=== PATIENT | female | born 1980 | race Caucasian/White ===

== ENCOUNTER 2019-12-29 13:08 | Emergency (ER) | payer MEDICAID ==
[2019-12-29] MEDS ORDERED: Sodium Chloride 0.9% 1,000 ML IV ONE (13:13)
[2019-12-29] MEDS ORDERED: Morphine 4 MG/ML Syringe IVPUSH ONE (13:16)
--- NOTE | 2019-12-29 13:32 | EDM.PDOC ---
ED HPI GENERAL MEDICAL PROBLEM - General Chief Complaint: Abdominal Pain Stated Complaint: ABD PAIN Time Seen by Provider: 12/29/19 13:10 Source of Information: Reports: Patient History Limitations: Reports: No Limitations - History of Present Illness INITIAL COMMENTS - FREE TEXT/NARRATIVE: This 38 year old female is admitted to the ED with a chief complaint of epigastric abdominal pain going through to the back for two days that has gotten worse. She describes the pain as sharp to dull. No nausea or vomiting. Complains of constipation. No complaints. She denies any other complaints. She has a history of pancreatitis that was diagnosed 4 years ago. She is on Suboxone. She denies any alcohol ingestion or drug use. Onset: Gradual (over two days) Duration: Constant Location: Reports: Abdomen Quality: Reports: Sharp (to dull) Upper Abdomen Pain Score (Numeric/FACES): 10 - Related Data Allergies Allergy/AdvReac Type Severity Reaction Status Date / Time No Known Allergies Allergy Verified 12/29/19 13:14 Home Meds: Home Meds Buprenorphine HCl/Naloxone HCl [Buprenorphin-Naloxon 8-2 mg Sl] 1 tab .XX DAILY 12/29/19 [History] Ondansetron [Zofran] 4 mg PO Q8H PRN 5 Days #15 tab 12/29/19 [Rx] clonazePAM [Clonazepam] 1 mg PO ASDIRECTED 12/29/19 [History] ED ROS GENERAL - Review of Systems Review Of Systems: See Below Constitutional: Reports: No Symptoms HEENT: Reports: No Symptoms Respiratory: Reports: No Symptoms Cardiovascular: Reports: No Symptoms Endocrine: Reports: No Symptoms GI/Abdominal: Reports: Abdominal Pain. Denies: Nausea, Vomiting : Reports: No Symptoms Musculoskeletal: Reports: No Symptoms Skin: Reports: No Symptoms Neurological: Reports: No Symptoms ED EXAM, GI/ABD - Physical Exam Exam: See Below Exam Limited By: No Limitations General Appearance: Alert, WD/WN, Moderate Distress (complaining of epigastric pain through to the back) Eyes: Bilateral: Normal Appearance, EOMI Ears: Normal External Exam, Normal Canal, Normal TMs Nose: Normal Inspection, Normal Mucosa, No Blood Throat/Mouth: Normal Inspection, Normal Oropharynx Head: Atraumatic Neck: Normal Inspection, Supple Respiratory/Chest: No Respiratory Distress, Lungs Clear, Normal Breath Sounds, Chest Non-Tender Cardiovascular: Normal Peripheral Pulses, Regular Rate, Rhythm, No Murmur GI/Abdominal Exam: Normal Bowel Sounds, Soft, Guarding, Tender (epigastric tenderness through to the back). No: Rigid, Rebound (Female) Exam: Deferred Rectal (Female) Exam: Normal Exam, Normal Rectal Tone, Heme - Stool. No: Fecal Impaction Back Exam: Normal Inspection Extremities: Normal Inspection Neurological: Alert, Oriented (times 3), CN II-XII Intact, Normal Reflexes, No Motor/Sensory Deficits Psychiatric: Normal Affect, Normal Mood Skin Exam: Warm, Dry, Intact Lymphatic: No Adenopathy Course - Vital Signs Text/Narrative:: The patient was re-evaluated at 2:56PM. She is much improved. Rectal exam is negative for masses or fecal impaction. Very small amount of stool noted in the rectal vault. She will be discharged. The patient agrees with the discharge plan. Last Recorded V/S: Last Vital Signs Temp 96.7 F L 12/29/19 13:10 Pulse 68 12/29/19 14:12 Resp 17 12/29/19 14:12 BP 101/60 12/29/19 14:12 Pulse Ox 99 12/29/19 14:12 - Orders/Labs/Meds Labs: Laboratory Tests 12/29/19 12/29/19 12/29/19 Range/Units 13:09 13:09 13:09 WBC 5.17 (4.0-11.0) K/uL RBC 4.34 (4.30-5.90) M/uL Hgb 11.8 L (12.0-16.0) g/dL Hct 37.3 (36.0-46.0) % MCV 85.9 (80.0-98.0) fL MCH 27.2 (27.0-32.0) pg MCHC 31.6 (31.0-37.0) g/dL RDW Std Deviation 44.5 (28.0-62.0) fl RDW Coeff of John 14 (11.0-15.0) % Plt Count 217 (150-400) K/uL MPV 9.40 (7.40-12.00) fL Neut % (Auto) 46.8 L (48.0-80.0) % Lymph % (Auto) 41.6 H (16.0-40.0) % [place] % (Auto) 8.9 (0.0-15.0) % Eos % (Auto) 2.5 (0.0-7.0) % Baso % (Auto) 0.2 (0.0-1.5) % Neut # (Auto) 2.4 (1.4-5.7) K/uL Lymph # (Auto) 2.2 (0.6-2.4) K/uL [place] # (Auto) 0.5 (0.0-0.8) K/uL Eos # (Auto) 0.1 (0.0-0.7) K/uL Baso # (Auto) 0.0 (0.0-0.1) K/uL Nucleated RBC % 0.0 /100WBC Nucleated RBCs # 0 K/uL Lactate 1.1 (0.20-2.00) mmol/L Sodium 140 (136-145) mmol/L Potassium 3.9 (3.5-5.1) mmol/L Chloride 106 (98-107) mmol/L Carbon Dioxide 27.9 (21.0-32.0) mmol/L BUN 16 (7.0-18.0) mg/dL Creatinine 0.9 (0.6-1.0) mg/dL Est Cr Clr Drug Dosing TNP Estimated GFR (MDRD) > 60.0 ml/min Glucose 89 (74-106) mg/dL Calcium 8.3 L (8.5-10.1) mg/dL Magnesium 2.1 (1.8-2.4) mg/dL Total Bilirubin 0.1 L (0.2-1.0) mg/dL AST 28 (15-37) IU/L ALT 32 (14-63) IU/L Alkaline Phosphatase 50 (46-116) U/L Total Protein 6.7 (6.4-8.2) g/dL Albumin 3.2 L (3.4-5.0) g/dL Globulin 3.5 (2.6-4.0) g/dL Albumin/Globulin Ratio 0.9 (0.9-1.6) Lipase 124 (73-393) U/L Meds: Medications Discontinued Medications Generic Name Dose Route Start Last Admin Trade Name Freq PRN Reason Stop Dose Admin Sodium Chloride 1,000 mls @ 1,000 mls/hr 12/29/19 13:13 12/29/19 13:20 Normal Saline IV 12/29/19 14:12 1,000 mls/hr .Bolus ONE Administration Iopamidol 90 ml 12/29/19 14:09 12/29/19 14:11 Isovue Multipack-370 (76%) IVPUSH 12/29/19 14:10 90 ml ONETIME STA Administration Morphine Sulfate 4 mg 12/29/19 13:16 12/29/19 13:20 Morphine IVPUSH 12/29/19 13:17 4 mg ONETIME ONE Administration Departure - Departure Time of Disposition: 15:02 Disposition: Home, Self-Care 01 Condition: Good Clinical Impression: Nonspecific abdominal pain Constipation Qualifiers: Constipation type: chronic idiopathic constipation Qualified Code(s): K59.04 - Chronic idiopathic constipation - Discharge Information *PRESCRIPTION DRUG MONITORING PROGRAM REVIEWED*: Yes *COPY OF PRESCRIPTION DRUG MONITORING REPORT IN PATIENT DESMOND: Yes Instructions: Constipation, Adult, [id number], Probiotics, High-Fiber Diet Forms: ED Department Discharge Additional Instructions: Take all medications as directed. Follow up with your PCP in the next two to four days. Clear liquids for the next 8 hours and then advance your diet as tolerated. Rest for the next 24 hours. Return to the ED if your condition gets worse or should you have any questions or concerns. The following information is given to patients seen in the emergency department who are being discharged to home. This information is to outline your options for follow-up care. We provide all patients seen in our emergency department with a follow-up referral. The need for follow-up, as well as the timing and circumstances, are variable depending upon the specifics of your emergency department visit. If you don't have a primary care physician on staff, we will provide you with a referral. We always advise you to contact your personal physician following an emergency department visit to inform them of the circumstance of the visit and for follow-up with them and/or the need for any referrals to a consulting specialist. The emergency department will also refer you to a specialist when appropriate. This referral assures that you have the opportunity for follow-up care with a specialist. All of these measure are taken in an effort to provide you with optimal care, which includes your follow-up. Under all circumstances we always encourage you to contact your private physician who remains a resource for coordinating your care. When calling for follow-up care, please make the office aware that this follow-up is from your recent emergency room visit. If for any reason you are refused follow-up, please contact the [facility] Emergency Department at and asked to speak to the emergency department charge nurse. Sepsis Event Note - Focused Exam Vital Signs: Vital Signs Temp Pulse Resp BP Pulse Ox 12/29/19 14:12 68 17 101/60 99 12/29/19 13:23 99 17 111/63 98 12/29/19 13:10 96.7 F L 71 16 115/54 L 97 Date Exam was Performed: 12/29/19 Time Exam was Performed: 14:59
[2019-12-29 13:43] LABS: BLOOD UREA NITROGEN,BUN 16 mg/dL (7.0-18.0); CARBON DIOXIDE,CO2 27.9 mmol/L (21.0-32.0); CHLORIDE,CL 106 mmol/L (98-107); GLUCOSE RANDOM 89 mg/dL (74-106); LIPASE 124 U/L (73-393); POTASSIUM,K 3.9 mmol/L (3.5-5.1); SODIUM,NA 140 mmol/L (136-145)
[2019-12-29] MEDS ORDERED: Iopamidol 755 MG/ML 500 ML Multipack Bottle IVPUSH STA (14:09)
--- NOTE | 2019-12-29 14:37 | CT ---
CT abdomen and pelvis Technique: Multiple axial sections were obtained from above the dome of the diaphragm inferiorly through the pubic symphysis. Intravenous contrast was utilized. No oral contrast has been given. Comparison: No prior abdominal imaging. Findings: Visualized lung bases show nothing acute. Liver contains no focal parenchymal abnormality. Spleen shows no focal abnormality. Adrenal glands show no nodule. Kidneys show symmetric contrast enhancement with no hydronephrosis or mass being seen. Pancreas appears within normal limits. Gallbladder contains no calcified gallstones. Aorta shows no aneurysm. No retroperitoneal adenopathy or mesenteric abnormalities are seen. No pelvic mass or adenopathy is noted. Increased stool is seen throughout the colon. Appendix is seen which is normal in size. No free fluid or inflammatory change is appreciated. Bone window settings were reviewed. No acute osseous finding is appreciated. Impression: 1. Increased stool throughout the colon. 2. Nothing acute is otherwise seen on CT study of the abdomen and pelvis. Diagnostic code #2 This report was dictated in MDT
== END 2019-12-29 15:16 | disposition home or self-care (01) ==
LOC: MW.ED 13:08
DX: K59.04 Chronic idiopathic constipation (principal); Z79.899 Other long term (current) drug therapy
CPT/HCPCS: 36415; 74177; 80053; 83605; 83690; 83735; 85025; 96361; 96374; 99285; J2270; J7030; Q9967; 99283

== ENCOUNTER 2021-01-23 02:40 | Emergency (ER) | payer MEDICAID ==
[2021-01-23] MEDS ORDERED: Sodium Chloride 0.9% 2.5 ML Syringe FLUSH PRN (02:52)
[2021-01-23] MEDS ORDERED: Ketorolac 30 MG/ML SDV IVPUSH ONE (02:52)
[2021-01-23] MEDS ORDERED: Sodium Chloride 0.9% 10 ML Syringe FLUSH PRN (02:52)
[2021-01-23] MEDS ORDERED: Sodium Chloride 0.9% 1,000 ML IV ONE (02:52)
[2021-01-23] MEDS ORDERED: Ondansetron 4 MG/2 ML SDV IVPUSH ONE (02:52)
[2021-01-23] MEDS ORDERED: fentaNYL 50 MCG/ML SDV IVPUSH ONE (02:55)
[2021-01-23 03:10] LABS: BLOOD UREA NITROGEN,BUN 16 mg/dL (7.0-18.0); CARBON DIOXIDE,CO2 28.2 mmol/L (21.0-32.0); CHLORIDE,CL 102 mmol/L (98-107); GLUCOSE RANDOM 102 mg/dL (74-106); LIPASE 138 U/L (73-393); SODIUM,NA 137 mmol/L (136-145)
--- NOTE | 2021-01-23 04:24 | US ---
INDICATION: Right upper quadrant pain TECHNIQUE: Ultrasound abdomen limited. Sonographic images of the right upper quadrant were obtained using albrecht-scale and color Doppler images. COMPARISON: None available FINDINGS: Liver: Unremarkable size and echotexture. No masses. No intrahepatic biliary dilatation. Gallbladder: Cholelithiasis. No significant gallbladder wall thickening. A reported negative sonographic Gee`s sign. Common bile duct: 6 mm. Pancreas: Incompletely imaged due to obscuring bowel gas. Right kidney: 10.5 x 4.1 x 5.0 cm. Normal echotexture and cortex. No masses, stones, or hydronephrosis. IMPRESSION: Cholelithiasis. Upper limits of normal CBD caliber. Limited evaluation of the pancreas. Dictated by Maximus Rainey MD @ 01/23/2021 4:22:[address] Maximus Rainey @ Jan 23 2021 4:22AM
--- NOTE | 2021-01-23 05:57 | EDM.PDOC ---
ED HPI GENERAL MEDICAL PROBLEM - General Chief Complaint: Abdominal Pain Stated Complaint: ABDOMINAL PAIN Time Seen by Provider: 01/23/21 02:52 - History of Present Illness INITIAL COMMENTS - FREE TEXT/NARRATIVE: HISTORY AND PHYSICAL: History of present illness: 40-year-old female with no significant past medical history who presents ER today complaining of severe right upper quadrant abdominal pain that started earlier today. Patient denies any fevers, shakes, chills, nausea, vomiting, diarrhea, dysuria, frequency, urgency. Patient reports she was able to eat dinner several hours prior to the pain starting. Patient reports similar episodes in the past x1. Patient received Toradol 30 mg IV by EMS with minimal relief in her discomfort. Review of systems: As per history of present illness and below otherwise all systems reviewed and negative. Past medical history: As per history of present illness and as reviewed below otherwise noncontributory. Surgical history: As per history of present illness and as reviewed below otherwise noncontributory. Social history: No reported history of drug abuse. Family history: As per history of present illness and as reviewed below otherwise noncontributory. Physical exam: This patient was seen and evaluated during the 2019 SARS-CoV-2 novel coronavirus pandemic period. Community viral transmission is ongoing at time of this encounter and the emergency department is operating under pandemic response procedures. Constitutional: Patient is oriented to person, place, and time. Appears well- developed and well-nourished. No distress. HEENT: Moist mucous membranes Head: Normocephalic and atraumatic Eyes: Right eye exhibits no discharge. Left eye exhibits no discharge. No scleral icterus Neck: Normal range of motion. No tracheal deviation present. Cardiovascular: Normal rate and regular rhythm. Pulmonary: Effort normal, no respiratory distress. Abd: Soft, nondistended, no rebound/guarding, no psoas or obturator signs, no tenderness at Mcberney's point, no Gee's sign. Pt does not present with an exam that would be consistent with an acute surgical abdomen at this time, tenderness palpation right upper quadrant. Musculoskeletal: Normal range of motion Neurologic: Alert and oriented to person, place and time. Skin: [place], warm and dry. Psychiatric: Normal mood and affect. Behavior is normal. Judgment and thought content normal. Nursing note and vital signs have been reviewed Diagnostics: Ultrasound of right upper quadrant reveals cholelithiasis with no significant gallbladder wall thickening. A negative sonographic Gee's. No ductal or intrahepatic biliary dilatation. Therapeutics: Fentanyl 50 mcg IV x1 Zofran 4 mg IV NSS x1 L Assessment and plan: 40-year-old female who presents to the ER today complaining of right upper quadrant abdominal pain. Patient's ultrasound is consistent with biliary colic. Patient has been reevaluated by me and her pain is completely resolved at this time. Patient be given the phone number for surgery for outpatient follow-up. Patient has no flank tenderness, no hematuria, no suprapubic abdominal discomfort. No signs or symptoms consistent with a urinary tract infection. Patient will be discharged home with a prescription for Zofran and Bentyl. Reassessment at the time of disposition demonstrates that the patient is in no acute distress. The patient has remained stable throughout the entire ED visit and is without objective evidence for acute process requiring urgent intervention or hospitalization. The patient is stable for discharge, counseling is provided as documented above, discussed symptomatic treatment and specific conditions for return. I have spoken with the patient/caregiver and discussed todays findings, in addition to providing specific details for the plan of care. Questions are answered and there is agreement with the plan. Definitive disposition and diagnosis as appropriate pending reevaluation and review of above. Abdomen Pain Score (Numeric/FACES): 9 - Related Data Allergies Allergy/AdvReac Type Severity Reaction Status Date / Time No Known Allergies Allergy Verified 01/23/21 02:51 Home Meds: Home Meds Buprenorphine HCl/Naloxone HCl [Buprenorphine-Nalox 8-2 mg Tab] 1 tab PO ASDIRECTED 12/29/19 [History] clonazePAM [Clonazepam] 1 mg PO DAILY 12/29/19 [History] Dicyclomine [Bentyl] 20 mg PO QIDACANDBED PRN #20 tab 01/23/21 [Rx] Ibuprofen 600 mg PO Q6HR PRN #30 tablet 01/23/21 [Rx] Phendimetrazine Tartrate 35 mg PO DAILY 01/23/21 [History] estradioL [Estradiol] 1 tab PO DAILY 01/23/21 [History] Past Medical History HEENT History: Reports: None Cardiovascular History: Reports: None Respiratory History: Reports: None Gastrointestinal History: Reports: Pancreatitis Genitourinary History: Reports: 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 Musculoskeletal History: Reports: None Neurological History: Reports: None Psychiatric History: Reports: Anxiety, Depression Endocrine/Metabolic History: Reports: None 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 Hematologic History: Reports: None Immunologic History: Reports: None Oncologic (Cancer) History: Reports: None Dermatologic History: Reports: None - Infectious Disease History Infectious Disease History: Reports: None - Past Surgical History Head Surgeries/Procedures: Reports: None HEENT Surgical History: Reports: Naso-Sinus Surgery Female Surgical History: Reports: Section, Hysterectomy Social & Family History - Recreational Drug Use Recreational Drug Use: Yes Drug Use in Last 12 Months: Yes Recreational Drug Type: Reports: Marijuana/Hashish ED ROS GENERAL - Review of Systems Review Of Systems: See Below ED EXAM, GENERAL - Physical Exam Exam: See Below Course - Vital Signs Last Recorded V/S: Last Vital Signs Temp 96.8 F L 01/23/21 02:40 Pulse 55 L 01/23/21 03:45 Resp 16 01/23/21 03:45 BP 100/49 L 01/23/21 03:45 Pulse Ox 97 01/23/21 03:45 - Orders/Labs/Meds Orders: Active Orders 24 hr Category Date Time Status HCG QUALITATIVE,URINE [URCHEM] Stat Lab 01/23/21 02:52 Ordered UA W/ELOISA RFLX IF INDICATED [URIN] Stat Lab 01/23/21 02:53 Ordered Sodium Chloride 0.9% [Saline Flush] Med 01/23/21 02:52 Active 10 ml FLUSH ASDIRECTED PRN Sodium Chloride 0.9% [Saline Flush] Med 01/23/21 02:52 Active 2.5 ml FLUSH ASDIRECTED PRN Saline Lock Insert [OM.PC] Stat Oth 01/23/21 02:52 Ordered Medication Orders Sodium Chloride (Sodium Chloride 0.9% 10 Ml Syringe) 10 ml FLUSH ASDIRECTED PRN PRN Reason: Keep Vein Open Sodium Chloride (Sodium Chloride 0.9% 2.5 Ml Syringe) 2.5 ml FLUSH ASDIRECTED PRN PRN Reason: Keep Vein Open Labs: Laboratory Tests 01/23/21 01/23/21 Range/Units 02:40 02:40 WBC 7.27 (4.0-11.0) K/uL RBC 4.37 (4.30-5.90) M/uL Hgb 12.6 (12.0-16.0) g/dL Hct 37.3 (36.0-46.0) % MCV 85.4 (80.0-98.0) fL MCH 28.8 (27.0-32.0) pg MCHC 33.8 (31.0-37.0) g/dL RDW Std Deviation 41.5 (28.0-62.0) fl RDW Coeff of John 13 (11.0-15.0) % Plt Count 258 (150-400) K/uL MPV 9.80 (7.40-12.00) fL Neut % (Auto) 64.5 (48.0-80.0) % Lymph % (Auto) 26.4 (16.0-40.0) % [place] % (Auto) 7.8 (0.0-15.0) % Eos % (Auto) 1.2 (0.0-7.0) % Baso % (Auto) 0.1 (0.0-1.5) % Neut # (Auto) 4.7 (1.4-5.7) K/uL Lymph # (Auto) 1.9 (0.6-2.4) K/uL [place] # (Auto) 0.6 (0.0-0.8) K/uL Eos # (Auto) 0.1 (0.0-0.7) K/uL Baso # (Auto) 0.0 (0.0-0.1) K/uL Nucleated RBC % 0.0 /100WBC Nucleated RBCs # 0 K/uL Sodium 137 (136-145) mmol/L Potassium 4.0 (3.5-5.1) mmol/L Chloride 102 (98-107) mmol/L Carbon Dioxide 28.2 (21.0-32.0) mmol/L BUN 16 (7.0-18.0) mg/dL Creatinine 1.0 (0.6-1.0) mg/dL Est Cr Clr Drug Dosing TNP Estimated GFR (MDRD) > 60.0 ml/min Glucose 102 (74-106) mg/dL Calcium 7.9 L (8.5-10.1) mg/dL Total Bilirubin 0.6 (0.2-1.0) mg/dL AST 132 H (15-37) IU/L ALT 120 H (14-63) IU/L Alkaline Phosphatase 72 (46-116) U/L Total Protein 7.3 (6.4-8.2) g/dL Albumin 3.5 (3.4-5.0) g/dL Globulin 3.8 (2.6-4.0) g/dL Albumin/Globulin Ratio 0.9 (0.9-1.6) Lipase 138 (73-393) U/L Meds: Medications Generic Name Dose Route Start Last Admin Trade Name Freq PRN Reason Stop Dose Admin Sodium Chloride 10 ml 01/23/21 02:52 Sodium Chloride 0.9% 10 Ml Syringe FLUSH ASDIRECTED PRN Keep Vein Open Sodium Chloride 2.5 ml 01/23/21 02:52 Sodium Chloride 0.9% 2.5 Ml Syringe FLUSH ASDIRECTED PRN Keep Vein Open Discontinued Medications Generic Name Dose Route Start Last Admin Trade Name Freq PRN Reason Stop Dose Admin Fentanyl 50 mcg 01/23/21 02:55 01/23/21 03:08 Fentanyl 50 Mcg/Ml Sdv IVPUSH 01/23/21 02:56 50 mcg ONETIME ONE Administration Sodium Chloride 1,000 mls @ 999 mls/hr 01/23/21 02:52 01/23/21 03:07 Normal Saline IV 01/23/21 03:52 999 mls/hr .Bolus ONE Administration Ketorolac Tromethamine 30 mg 01/23/21 02:52 01/23/21 03:01 Ketorolac 30 Mg/Ml Sdv IVPUSH 01/23/21 02:53 Not Given ONETIME ONE Ondansetron HCl 4 mg 01/23/21 02:52 01/23/21 03:08 Ondansetron 4 Mg/2 Ml Sdv IVPUSH 01/23/21 02:53 4 mg ONETIME ONE Administration Departure - Departure Time of Disposition: 05:55 Disposition: Home, Self-Care 01 Condition: Good Clinical Impression: Biliary colic Abdominal pain Qualifiers: Abdominal location: right upper quadrant Qualified Code(s): R10.11 - Right upper quadrant pain - Discharge Information Instructions: Biliary Colic, Adult Additional Instructions: You were seen and evaluated in the ER today secondary to pain in your right upper quadrant. The ultrasound that we obtained revealed that you have gal lstones within your gallbladder. Your blood tests were all within normal limits. You did not appear to have any inflammation within the liver itself. You will be given the phone number for the surgery clinic to follow-up with them as an outpatient to evaluate you for possible elective removal of your gallbladder. You will be given a prescription for Bentyl which is an antispasmodic medication as well as ibuprofen to help with your pain and discomfort if it should come back. Please avoid greasy fatty foods as this will irritate your gallbladder. [facility] - General Surgery Professional Building [address] [place] [address], [address] [place] [address] The following information is given to patients seen in the emergency department who are being discharged to home. This information is to outline your options for follow-up care. We provide all patients seen in our emergency department with a follow-up referral. The need for follow-up, as well as the timing and circumstances, are variable depending upon the specifics of your emergency department visit. If you don't have a primary care physician on staff, we will provide you with a referral. We always advise you to contact your personal physician following an emergency department visit to inform them of the circumstance of the visit and for follow-up with them and/or the need for any referrals to a consulting specialist. The emergency department will also refer you to a specialist when appropriate. This referral assures that you have the opportunity for follow-up care with a specialist. All of these measure are taken in an effort to provide you with optimal care, which includes your follow-up. Under all circumstances we always encourage you to contact your private physician who remains a resource for coordinating your care. When calling for follow-up care, please make the office aware that this follow-up is from your recent emergency room visit. If for any reason you are refused follow-up, please contact the [facility] Emergency Department at and asked to speak to the emergency department charge nurse. [facility] - Primary Care [address] [place] [id number] [id number] Sepsis Event Note (ED) - Evaluation Sepsis Screening Result: No Definite Risk - Focused Exam Vital Signs: Vital Signs Temp Pulse Resp BP Pulse Ox 01/23/21 03:45 55 L 16 100/49 L 97 01/23/21 02:40 96.8 F L 64 18 98/43 L 97 - My Orders Last 24 Hours: My Active Orders 01/23/21 02:52 HCG QUALITATIVE,URINE [URCHEM] Stat Sodium Chloride 0.9% [Saline Flush] 10 ml FLUSH ASDIRECTED PRN Sodium Chloride 0.9% [Saline Flush] 2.5 ml FLUSH ASDIRECTED PRN Saline Lock Insert [OM.PC] Stat 01/23/21 02:53 UA W/ELOISA RFLX IF INDICATED [URIN] Stat - Assessment/Plan Last 24 Hours: My Active Orders 01/23/21 02:52 HCG QUALITATIVE,URINE [URCHEM] Stat Sodium Chloride 0.9% [Saline Flush] 10 ml FLUSH ASDIRECTED PRN Sodium Chloride 0.9% [Saline Flush] 2.5 ml FLUSH ASDIRECTED PRN Saline Lock Insert [OM.PC] Stat 01/23/21 02:53 UA W/ELOISA RFLX IF INDICATED [URIN] Stat
== END 2021-01-23 06:15 | disposition home or self-care (01) ==
LOC: MW.ED 02:40
DX: K80.50 Calculus of bile duct without cholangitis or cholecystitis without obstruction (principal)
CPT/HCPCS: 36415; 76705; 80053; 81003; 81025; 83690; 85025; 96374; 96375; 99285; J2405; J3010; J7030; 99283